=== PATIENT | female | born 1995 | race Caucasian/White ===

== ENCOUNTER 2018-08-04 14:10 | Emergency (ER) | payer MEDICAID, SELFPAY ==
[2018-08-04 14:13] VITALS: BP 102/66; PULSE 90; PULSE 94; RESP 17; TEMP 37.6; O2SAT 95; O2SAT 96; BMI 18.7
--- NOTE | 2018-08-04 15:25 | ED.VISSUMM ---
- ER Visit Summary Date of Service: 08/04/18 Chief Complaint: Fever, cough History of Present Illness: The patient is a 22 F presents to the emergency department fever and cough. Patient symptoms been going on for 2 days. There is been positive influenza exposure. She states that she is a cough productive sputum. She is also had chills and myalgias. She is feeling better today than she was yesterday. Her boyfriend is also sick with similar symptoms. She has no history of immunosuppression. She does smoke. Physical Examination: Vital signs reviewed General: Well-nourished, well-developed Head: Normocephalic, atraumatic Eyes: Pupils equal and reactive, extraocular muscles intact Neck, supple, no lymphadenopathy Heart: Regular rate and rhythm Respiratory: No distress, clear bilaterally Abdomen: Soft, nontender, nondistended, no peritoneal signs Back: Nontender Extremities: Nontender, no edema, no cords Skin: Normal color no rash Neuro: Alert and oriented, no focal or lateralizing deficits Test Results: [] Emergency Department Course and Treatment: Rapid flu was obtained in triage. It was positive. Patient is still within the window for Tamiflu. After discussion, she was agreeable with this treatment. I did obtain a chest x-ray. This is unremarkable. There is no evidence of infiltrates. She is not hypoxic or tachypneic. I do feel the patient is safe for outpatient therapy. She is comfortable with this plan of care. Treatment Plan: [] Disposition: Discharge Impression: 1. Influenza This note was generated with [employer] dictation software. It may contain incorrect words, spelling, and punctuation that were not noted in review of the chart prior to signing ED Disposition - Plan for ED Patient: Instructions: ED Flu Prescriptions: Oseltamivir Phosphate [Tamiflu] 75 mg PO BID #10 cap Referrals: Care Physician,No Primary [Primary Care Provider] -
--- NOTE | 2018-08-04 15:30 | RAD_ITS ---
STUDY: X-RAY CHEST REASON FOR EXAM: Female, 22 years old. Cough and fever. Weakness. TECHNIQUE: PA and lateral views of the chest. COMPARISON: None. FINDINGS: The lungs are clear and expanded. There is no demonstrated pleural abnormality. Normal size heart. Normal mediastinum and li. Normal visualized pulmonary arteries. Normal visualized aortic arch and descending thoracic aorta. Normal visualized thoracic spine. Normal visualized ribs, clavicles, and shoulders. There is no demonstrated abnormality of the visualized soft tissue structures of the upper abdomen. RAD/Chest PA and Lateral IMPRESSION: Normal x-ray examination of the chest. Electronically Signed: John Henderson, at 15:50 EST , Service support ,
[2018-08-04] MEDS: Oseltamivir Phosphate 75 MG Capsule PO (15:38)
== END 2018-08-04 15:51 | disposition home or self-care (01) ==
PROVIDERS: Emergency Provider Emergency Medicine
DX: J11.1 Influenza due to unidentified influenza virus with other respiratory manifestations (principal)
CPT/HCPCS: 71046; 87804; 99283

== ENCOUNTER → 2020-01-17 10:33 | Outpatient (CLI) | payer MEDICAID, SELFPAY ==
[2020-01-17 13:35] LABS: Absolute Lymphocyte Count 1.71 X10^3/uL (0.83-4.51); Absolute Neutrophil Count 10.7 X10^3/uL (2.0-7.7); Basophil# 0.07 X10^3/uL; Basophil% 0.5 % (0-1); Eosinophil# 0.18 X10^3/uL; Eosinophils% 1.3 % (0-5); Hematocrit 43.2 % (37-47); Hemoglobin 14.1 g/dL (12.0-15.0); Lymphocyte # 1.71 X10^3/ul (4.0); Lymphocyte % 12.6 % (19-41); Mean Corp Hgb Conc 32.6 g/dL (32-36); Mean Corpuscular Hgb 31.1 pg (27.0-32.0); Mean Corpuscular Volume 95.4 fL (81-99); Monocyte# 0.88 X10^3/uL; Monocyte% 6.5 % (0-10); NRBC Flagged by Analyzer 0 % (0-5); Neutrophil # 10.68 X10^3/uL (2.7-7.7); Neutrophil % 78.7 % (47-70); Platelet Count 331 K/mm3 (150-450); RBC Distribution Width CV 13.5 % (11.6-14.6); RBC Distribution Width SD 47.4 fl (35.1-43.9); Red Blood Count 4.53 M/mm3 (4.2-5.4); White Blood Count 13.6 K/mm3 (4.4-11.0)
[2020-01-17 13:36] LABS: Color, Urine Yellow (Yellow); Glucose, Dipstick Normal (Normal); Ketone-Dipstick 15 mg/dl (Negative); Leukocyte Esterase-Dipstick 500 /ul (Negative); Nitrite-Dipstick Negative (Negative); Occult Blood-Urine Negative /ul (Negative); Protein-Dipstick 15 mg/dl (Negative); Specific Gravity, Urine 1.025 (1.002-1.030); Urine Bilirubin Dipstick Negative (Negative); Urine Clarity Cloudy (Clear); Urine Urobilinogen Normal (Normal)
[2020-01-17 13:55] LABS: Amphetamine Urine VISTA NEGATIVE (<1000 ng/mL); Barbiturate Urine VISTA NEGATIVE (< 200 ng/mL); Benzodiazepine Urine VISTA NEGATIVE (< 200 ng/mL); Cocaine Urine VISTA NEGATIVE (< 300 ng/mL); Ecstacy Urine VISTA NEGATIVE (< 500 ng/mL); Methadone Urine VISTA NEGATIVE (< 300 ng/mL); PCP Urine VISTA NEGATIVE (< 25 ng/mL); THC Urine VISTA POSITIVE (< 50 ng/mL); Vista UDS pH Range 6
[2020-01-17 13:59] LABS: Free T3 1.7 pg/mL (2.18-3.98); T4 Free Direct 0.64 ng/dL (0.76-1.46); T4 Total, Thyroxin 4.7 ug/dL (4.8-13.9); Thyroid Stim Hormone (TSH) 8.45 uIU/mL (0.358-3.74)
[2020-01-17 14:31] LABS: HIV - WCH Non-Reactive (Nonreactive); Hepatitis B Surface Antigen Non-Reactive (Nonreactive); Hepatitis C Antibody Non-Reactive (Nonreactive); Rubella IgG 47.1 IU/mL
[2020-01-19 02:16] LABS: Prenatal RPR NONREACTIVE (NONREACTIVE)
[2020-01-19 03:06] LABS: Chlamydia By Nucleic Acid AMP Negative (Negative)
[2020-01-19 11:28] LABS: Gonococcus By Nucleic Acid AMP Negative (Negative)
== END ==
PROVIDERS: Visit Provider Obstetrics & Gynecology
DX: Z11.3 Encounter for screening for infections with a predominantly sexual mode of transmission (principal); Z34.81 Encounter for supervision of other normal pregnancy, first trimester
CPT/HCPCS: 36415; 80307; 81002; 84436; 84439; 84443; 84481; 85025; 86703; 86762; 86803; 87340; 87491; 87591

== ENCOUNTER → 2020-02-13 15:05 | Outpatient (CLI) | payer MEDICAID, SELFPAY ==
[2020-02-13 16:25] LABS: Free T3 2.2 pg/mL (2.18-3.98); T4 Free Direct 0.93 ng/dL (0.76-1.46); T4 Total, Thyroxin 12.2 ug/dL (4.8-13.9); Thyroid Stim Hormone (TSH) 1.21 uIU/mL (0.358-3.74)
== END ==
PROVIDERS: Visit Provider Obstetrics & Gynecology
DX: E03.8 Other specified hypothyroidism (principal)
CPT/HCPCS: 36415; 84436; 84439; 84443; 84481

== ENCOUNTER → 2020-05-14 16:28 | Outpatient (CLI) | payer MEDICAID, SELFPAY ==
[2020-05-14 17:50] LABS: Hematocrit 37.7 % (37-47); Hemoglobin 12.1 g/dL (12.0-15.0); Mean Corp Hgb Conc 32.1 g/dL (32-36); Mean Corpuscular Hgb 30.8 pg (27.0-32.0); Mean Corpuscular Volume 95.9 fL (81-99); Mean Platelet Vol. 10.2 fl (6.2-12.0); Platelet Count 319 K/mm3 (150-450); RBC Distribution Width CV 13.1 % (11.6-14.6); RBC Distribution Width SD 46.2 fl (35.1-43.9); Red Blood Count 3.93 M/mm3 (4.2-5.4); White Blood Count 11.2 K/mm3 (4.4-11.0)
[2020-05-14 18:25] LABS: Glucose Challenge Gest 1H 50g 150 mg/dL (70-140); T4 Free Direct 0.99 ng/dL (0.76-1.46); Thyroid Stim Hormone (TSH) 0.51 uIU/mL (0.358-3.74)
== END ==
PROVIDERS: Visit Provider Obstetrics & Gynecology
DX: Z34.82 Encounter for supervision of other normal pregnancy, second trimester (principal)
CPT/HCPCS: 36415; 82950; 84439; 84443; 85027

== ENCOUNTER → 2020-05-30 09:55 | Outpatient (CLI) | payer MEDICAID, SELFPAY ==
[2020-05-30 11:00] LABS: Glucose GTT-Gestation. Fasting 77 mg/dL (<105)
== END ==
PROVIDERS: Referring Provider Obstetrics & Gynecology; Visit Provider Obstetrics & Gynecology
DX: O24.912 Unspecified diabetes mellitus in pregnancy, second trimester (principal); Z3A.00 Weeks of gestation of pregnancy not specified
CPT/HCPCS: 36415; 82951; 82952

== ENCOUNTER → 2020-08-08 16:42 | Outpatient (CLI) | payer MEDICAID, SELFPAY | PROVIDERS: Visit Provider Obstetrics & Gynecology | DX: Z36.85 Encounter for antenatal screening for Streptococcus B (principal) | CPT/HCPCS: 87077; 87081; 87186 ==

== ENCOUNTER 2020-08-20 07:10 | Inpatient (IN) | payer MEDICAID, SELFPAY ==
[2020-08-20] VITALS (20 sets, daily range): BP systolic 98–125; BP diastolic 55–72; PULSE 76–94; TEMP 36.7–37; O2SAT 97–99; BMI 23.3
[2020-08-20] MEDS: Lactated Ringers 1,000 ML 50 ML IV (08:05)
[2020-08-20 08:31] LABS: Absolute Lymphocyte Count 2.91 X10^3/uL (0.83-4.51); Absolute Neutrophil Count 7.5 X10^3/uL (2.0-7.7); Basophil# 0.05 X10^3/uL; Basophil% 0.4 % (0-1); Eosinophil# 0.29 X10^3/uL; Eosinophils% 2.4 % (0-5); Hemoglobin 12.7 g/dL (12.0-15.0); Lymphocyte # 2.91 X10^3/ul (4.0); Lymphocyte % 24.5 % (19-41); Mean Corp Hgb Conc 33.4 g/dL (32-36); Mean Corpuscular Hgb 31.2 pg (27.0-32.0); Mean Corpuscular Volume 93.4 fL (81-99); Mean Platelet Vol. 9.8 fl (6.2-12.0); Monocyte# 1.05 X10^3/uL; Monocyte% 8.8 % (0-10); NRBC Flagged by Analyzer 0 % (0-5); Neutrophil # 7.49 X10^3/uL (2.7-7.7); Neutrophil % 63.1 % (47-70); Platelet Count 269 K/mm3 (150-450); RBC Distribution Width CV 13.8 % (11.6-14.6); RBC Distribution Width SD 46.6 fl (35.1-43.9); Red Blood Count 4.07 M/mm3 (4.2-5.4); White Blood Count 11.9 K/mm3 (4.4-11.0)
[2020-08-20] MEDS: miSOPROStol 25 MCG TABLET VAGINAL (08:40)
--- NOTE | 2020-08-20 09:24 | HP.PCM_ITS ---
History and Physical Date of Admission: 08/20/20 Chief complaint: Induction of labor for IUGR History present illness: 25-year-old at 38 weeks and 0 days with KATERYNA 09/04/2019 1 x 7-week ultrasound arrives for induction of labor for IUGR. Denies headache, visual changes, nausea, vomiting, chest pain, shortness of breath, right upper quadrant pain. Patient states good movement Obstetric history: G1: Current Past medical history: Hypothyroidism, anxiety depression Medications: vitamin, Synthroid, Zoloft Past surgical history: None Social history: 1 pack/day smoker, history of THC use not in , denies alcohol Allergies: No known drug allergies Family history: Denies history of DVT or PE Review of systems: Besides above pertinent positives a full review of systems performed and found to be negative Physical exam: Vital Signs Temp 08/20/20 07:23 98.6 F General: Normal-appearing no acute distress HEENT: Normocephalic atraumatic no cervical lymphadenopathy Cardiac/respiratory: Nonlabored breathing, no use of her accessory muscles Abdomen: Soft, nontender, gravid Extremities: No peripheral edema normal peripheral pulses Psych: Normal affect normal demeanor nonpressured speech Mom's Microbiology 08/20/20 08:45 Mucosa - Nose SARS-CoV-2 Antigen (Rapid) - Final Mom's Labs & Results 08/20/20 08/20/20 08:00 08:00 WBC 11.9 H RBC 4.07 L Hgb 12.7 Hct 38.0 MCV 93.4 MCH 31.2 MCHC 33.4 RDW Std Deviation 46.6 H RDW Coeff of Jes 13.8 Plt Count 269 MPV 9.8 Immature Gran % (Auto) 0.800 Neut % (Auto) 63.1 Lymph % (Auto) 24.5 [place] % (Auto) 8.8 Eos % (Auto) 2.4 Baso % (Auto) 0.4 Absolute Neuts (auto) 7.5 Absolute Lymphs (auto) 2.91 Nucleated RBC % 0 Blood Type Pending Antibody Screen Pending Assessment plan: Is a 25-year-old G1, P0 at 38 weeks 0 days for induction of labor with IUGR -Admit Labor and delivery -Cytotec induction -GBS positive: To start penicillin -IUGR EFW 2481 g 15th percentile AC 4th percentile -Routine orders -Anesthesia to see
[2020-08-20] MEDS: Oxytocin 30 units/NS 500 ml 30 UNITS/500 ML IV.SOLN IV (13:21)
[2020-08-20] MEDS: Lactated Ringers 1,000 ML 150 ML IV (17:04)
--- NOTE | 2020-08-20 18:31 | PCM.PN.OB ---
Subjective: Resting comfortably in bed. Pain well controlled - Physical Exam Vitals/I&O's: Vital Signs Temp Pulse BP Pulse Ox 98.1 F 88 105/70 99 08/20/20 15:54 08/20/20 18:21 08/20/20 18:21 08/20/20 14:05 Weight: 123 lb 6 oz Body Mass Index (BMI) 23.3 Intake and Output for Last 24 Hours 08/18/20 08/19/20 08/20/20 23:59 23:59 23:59 Intake Total 898.41 / 898.41 Output Total 200 / 200 Balance 698.41 / 698.41 General: Alert, Oriented x3, Cooperative, No apparent distress HEENT: Atraumatic, Normocephalic Oral: Moist Mucosa Neck: Supple Abdomen: Soft, Non Tender Extremities: No clubbing, No cyanosis, No edema Neurological: Neuro grossly intact Psych/Mental Status: Normal Affect, Appropriate, Alert and oriented to time, place, person, mood and affect Microbiology Past 72 Hours 08/20/20 08:45 Mucosa - Nose SARS-CoV-2 Antigen (Rapid) - Final Laboratory Results 08/20/20 08:00: WBC 11.9 H, RBC 4.07 L, Hgb 12.7, Hct 38.0, MCV 93.4, MCH 31.2, MCHC 33.4, RDW Std Deviation 46.6 H, RDW Coeff of Jes 13.8, Plt Count 269, MPV 9.8, Immature Gran % (Auto) 0.800, Neut % (Auto) 63.1, Lymph % (Auto) 24.5, [place] % (Auto) 8.8, Eos % (Auto) 2.4, Baso % (Auto) 0.4, Absolute Neuts (auto) 7.5, Absolute Lymphs (auto) 2.91, Nucleated RBC % 0 08/20/20 08:00: Blood Type O POSITIVE, Antibody Screen NEGATIVE Current Medications Acetaminophen (Acetaminophen 500 Mg Tablet) 500 - 1,000 mg PO Q6H PRN PRN PRN Reason: Pain Score 1-3 Al Hydroxide/Mg Hydroxide (Mag Hydrox/Al Hydrox/Simeth 30 Ml Udc) 15 - 30 ml PO Q4H PRN PRN PRN Reason: INDIGESTION Citric Acid/Sodium Citrate (Sodium Citrate/Citric Acid 30 Ml Udc) 30 ml PO X1 PRN PRN Reason: Section Ephedrine Sulfate (Ephedrine Sulfate 50 Mg/Ml Ampul) 10 mg IV Q10M PRN PRN Reason: hypotension Ephedrine Sulfate (Ephedrine Sulfate 50 Mg/Ml Ampul) 10 mg IM Q30M PRN PRN Reason: hypotension Fentanyl Citrate (Fentanyl 100 Mcg/2 Ml Ampul) 25 - 50 mcg IV Q2H PRN PRN PRN Reason: Pain Score 4-10 Fentanyl/Bupivacaine/Sodium Chlor (Fentanyl-Bupivacaine (Epidural) 100 Ml Bag) 0 ml EPIDURAL UD KIRAN; Protocol Lactated Ringer's () 500 mls @ 999 mls/hr IV .Q31M PRN PRN Reason: Epidural Lactated Ringer's () 500 mls @ 999 mls/hr IV .Q31M PRN PRN Reason: Corrective Measures Lactated Ringer's () 1,000 mls @ 50 mls/hr IV .Q20H [facility] Last Admin: 08/20/20 17:04 Dose: 150 mls/hr Documented by: Oxytocin/Sodium Chloride () 30 units in 500 mls @ 2 mls/hr IV .Q250H [facility] Last Infusion: 08/20/20 17:39 Dose: 12 mls/hr Documented by: Penicillin G Potassium/Dextrose (Penicillin G Potassium) 3 mu in 50 mls @ 100 mls/hr IV Q4H [facility] Last Infusion: 08/20/20 14:49 Dose: Infused Documented by: Nalbuphine HCl (Nalbuphine 10 Mg/Ml Ampul) 5 mg IV Q3H PRN PRN PRN Reason: ITCHING Naloxone HCl (Naloxone 0.4 Mg/Ml Syringe) 0.02 mg IV Q1M PRN PRN Reason: RR <10 and pt unresponsive Ondansetron HCl (Ondansetron 4 Mg/2 Ml Vial) 4 mg IV Q4H PRN PRN PRN Reason: NAUSEA Prochlorperazine Edisylate (Prochlorperazine 10 Mg/2 Ml Vial) 10 mg IV Q6H PRN PRN PRN Reason: NAUSEA Sodium Chloride (0.9% Saline Lock 10 Ml Syringe) 10 - 40 ml IV X1 PRN PRN Reason: SALINE FLUSH Medical Necessity - Tobacco Use Smoking Status: Never smoker Assessment/Plan Patient seen and examined. Cervical exam /. heart tones category 1 tracing. Was called about prolonged decelerations 2 to 3 minutes at around 1400, tracing within normal limits for 30 minutes Pitocin restarted. Now with category 1 tracing discussed AROM with the patient, for now will keep intact and continue titrate Pitocin with category 1 tracing.
--- NOTE | 2020-08-20 19:28 | NURSING ---
Pitocin rate was at 14 mL/hour on pump upon arrival of this RN's shift. Increased to 16 mL/hour at 1925. See Connect labor documentation.
[2020-08-20] MEDS: fentaNYL 100 MCG/2 ML Ampul IV (23:03)
[2020-08-20] MEDS: 0.9% Saline Lock 10 ML Syringe IV (23:04)
[2020-08-20] MEDS: Lactated Ringers 500 ML 999 ML IV (23:36)
[2020-08-21] VITALS (55 sets, daily range): BP systolic 93–159; BP diastolic 50–102; PULSE 68–112; RESP 16–18; TEMP 36.4–37.3; O2SAT 86–100
[2020-08-21 00:45] LABS: ROM Internal Control Test YES-OK TO RESULT pt. (Internal QC)
[2020-08-21 00:46] LABS: ROM Patient Test POSITIVE (Negative)
[2020-08-21] MEDS: fentaNYL-bupivacaine (epidural) 100 ML BAG EPIDURAL (01:16)
[2020-08-21] MEDS: Lactated Ringers 500 ML 999 ML IV (01:42)
[2020-08-21] MEDS: Oxytocin 30 units/NS 500 ml 30 UNITS/500 ML IV.SOLN 334 UNITS IV (02:30)
--- NOTE | 2020-08-21 03:18 | PCM.OPRPT ---
Vaginal Delivery Date of Procedure: 08/21/20 Pre-Operative Diagnosis: Term, IUGR Post-Operative Diagnosis: Term, IUGR Type of Anesthesia: Epidural Description of Procedure: Normal spontaneous vaginal delivery of a viable female infant, vertex FRANK. Head and shoulders delivered with ease. Cord cut and clamped. Baby handed off to nursing. Placenta delivered via cord traction and fundal massage. Bilateral labial lacerations noted and repaired in typical fashion. EBL 300 cc Apgars 9/9
[2020-08-21] MEDS: 0.9% Saline Lock 10 ML Syringe IV ×2 (04:07→05:08)
[2020-08-21] MEDS: Ondansetron 4 MG/2 ML Vial IV (04:07)
[2020-08-21] MEDS: Ibuprofen 600 MG Tablet PO (09:43)
--- NOTE | 2020-08-21 10:50 | NURSING ---
Bilateral labial lacerations noted - approximated - pt states no pain from it.
--- NOTE | 2020-08-21 17:42 | NURSING ---
Bilateral labial lacerations unchanged from previous assessment.
[2020-08-21] MEDS: Sertraline 50 MG Tablet PO (21:38)
--- NOTE | 2020-08-21 23:46 | NURSING ---
bilateral labial lacerations, no repair needed
[2020-08-22 04:25] VITALS: BP 93/48; PULSE 75; RESP 16; TEMP 37.1
[2020-08-22] MEDS: Levothyroxine 75 MCG Tablet PO (05:38)
--- NOTE | 2020-08-22 07:28 | PCM.PN.OB ---
Subjective: PPD1 feeling well. Lochia minimal. . - Physical Exam Vitals/I&O's: Vital Signs Temp Pulse Resp BP Pulse Ox 98.8 F 75 16 93/48 L 96 08/22/20 04:25 08/22/20 04:25 08/22/20 04:25 08/22/20 04:25 08/21/20 23:25 Oxygen Delivery Method Room Air Weight: 55.962 kg Body Mass Index (BMI) 23.3 Intake and Output for Last 24 Hours 08/20/20 08/21/20 08/22/20 23:59 23:59 23:59 Intake Total 2477.14 / 2477.14 2050.54 / 2050.54 Output Total 275 / 275 1600 / 1600 Balance 2202.14 / 2202.14 450.54 / 450.54 General: Alert, Oriented x3, No apparent distress HEENT: Atraumatic, Normocephalic Neck: Supple Lungs: Normal air movement Cardiovascular: Regular rate Abdomen: Soft - uterus 2 cm below umbilicus Extremities: No edema Neurological: Cranial nerves II-XII grossly intact Psych/Mental Status: Normal Affect, Appropriate Microbiology Past 72 Hours 08/20/20 08:45 Mucosa - Nose SARS-CoV-2 Antigen (Rapid) - Final Current Medications Acetaminophen (Acetaminophen 500 Mg Tablet) 1,000 mg PO Q8H PRN PRN PRN Reason: Pain Score 1-3 Bisacodyl (Bisacodyl 10 Mg Suppository) 10 mg RC UD PRN PRN Reason: If no BM Dibucaine (Dibucaine 30 Gm Tube) 1 applic TOPICAL TID PRN PRN; Protocol PRN Reason: Discomfort Hydrocortisone (Hydrocortisone 2.5% Crm) 1 applic TOPICAL TID PRN PRN; Protocol PRN Reason: Discomfort Ibuprofen (Ibuprofen 600 Mg Tablet) 600 mg PO Q6H PRN PRN PRN Reason: Pain Score 1-3 Last Admin: 08/21/20 09:43 Dose: 600 mg Documented by: Levothyroxine Sodium (Levothyroxine 75 Mcg Tablet) 75 mcg PO DAILY@0600 KIRAN Last Admin: 08/22/20 05:38 Dose: 75 mcg Documented by: Ondansetron HCl (Ondansetron 4 Mg/2 Ml Vial) 4 mg IV Q4H PRN PRN PRN Reason: Nausea Last Admin: 08/21/20 04:07 Dose: 4 mg Documented by: Senna/Docusate Sodium (Senna/Docusate Sodium 1 Tablet) 1 - 2 tablet PO DAILY PRN PRN PRN Reason: Constipation Sertraline HCl (Sertraline 50 Mg Tablet) 50 mg PO DAILY@2200 KIRAN Last Admin: 08/21/20 21:38 Dose: 50 mg Documented by: Simethicone (Simethicone 80 Mg Tablet) 80 mg PO PCHS PRN PRN Reason: Indigestion/Stomach pain Sodium Chloride (0.9% Saline Lock 10 Ml Syringe) 5 - 15 ml IV UD PRN PRN Reason: SALINE FLUSH Last Admin: 08/21/20 05:08 Dose: 10 ml Documented by: Medical Necessity - Tobacco Use Smoking Status: Never smoker Assessment/Plan PPD#1 s/p . . Doing well. Home today.
--- NOTE | 2020-08-22 07:29 | DCINST_ITS ---
Discharge Diet: No Restrictions Discharge Activity: Return to Normal Activity, May not drive while taking narcotic pain medications., May Shower May resume sexual activity in: 4-6 weeks Weight Bearing Status: Weight bearing as tolerated Call your doctor if you observe: Inability to urinate, Inability to have a bowel movement, Using more than one pad per hour, Shortness of breath, Dizziness, Calf discomfort Additional Instructions: If you experience any of the following, contact your healthcare provider. * Bleeding that soaks a pad every hour for 2 hours * Fever 100.4 or higher * Unrelieved incision or abdominal pain * Swelling, redness, discharge or bleeding from your incision or episiotomy site * Your incision begins to separate * Problems urinating (including inability to urinate or burning while urinat ing). * Visual changes * Severe headache * Flu-like symptoms * Pain or redness in one of both of your breasts * Pain, warmth, tenderness or swelling in your legs, especially the calf area * Frequent nausea and vomiting * Symptoms of depression or anxiety If you experience any of the following, call 911 or go to the nearest Emergency Room. * Chest pain * Problems breathing * Seizure activity * Partial or complete paralysis of a body part, slurred speech, weakness or drooping of the face, or a sudden inability to walk or hold your balance Allergies/Adverse Reactions: Allergies No Known Allergies Allergy (Verified 08/04/18 14:13) Medications to take at Discharge Levothyroxine [Synthroid] 75 mcg PO DAILY 10/06/16 Sertraline HCl 50 mg PO DAILY 08/04/18 Oseltamivir Phosphate [Tamiflu] 75 mg PO BID 08/20/20 Please Follow Up With: Ja Graham MD When: 6 weeks Primary Care Physician: Care Physician,No Primary [Primary Care Provider] - Test Results: Test results from this visit will be discussed in further detail at your follow- up appointment, if applicable.
[2020-08-22 07:58] VITALS: BP 97/57; PULSE 66; RESP 16; TEMP 36.4
[2020-08-22 10:24] VITALS: BP 114/67; PULSE 89; RESP 16; TEMP 36.6; O2SAT 95
[2020-08-22 13:06] VITALS: BP 97/65; PULSE 74; RESP 16; TEMP 36.4
== END 2020-08-22 13:30 | disposition home or self-care (01) | DRG 560 ==
PROVIDERS: Admitting Provider Obstetrics & Gynecology; Referring Provider Obstetrics & Gynecology; Visit Provider Obstetrics & Gynecology
DX: O36.5930 Maternal care for other known or suspected poor fetal growth, third trimester, not applicable or unspecified (principal); O76 Abnormality in fetal heart rate and rhythm complicating labor and delivery; O70.0 First degree perineal laceration during delivery; O98.82 Other maternal infectious and parasitic diseases complicating childbirth; B95.1 Streptococcus, group B, as the cause of diseases classified elsewhere; O99.824 Streptococcus B carrier state complicating childbirth; F17.210 Nicotine dependence, cigarettes, uncomplicated; O99.334 Smoking (tobacco) complicating childbirth; O99.284 Endocrine, nutritional and metabolic diseases complicating childbirth; E03.9 Hypothyroidism, unspecified; Z3A.38 38 weeks gestation of pregnancy; Z37.0 Single live birth
CPT/HCPCS: 59025; 59050; 84112; 85025; 86850; 86900; 86901; 87426; 99218; J7120; A4216; G0378; J2405

== ENCOUNTER 2022-09-29 05:23 | Emergency (ER) | payer MEDICAID, SELFPAY ==
[2022-09-29 05:26] VITALS: BP 129/76; PULSE 102; RESP 18; TEMP 36.7; O2SAT 93; BMI 20.9
--- NOTE | 2022-09-29 06:27 | EDS_ITS ---
HPI History of Present Illness Chief Complaint: Anxiety Informant: patient Onset/Context/Timing Onset: Today and Hours Context: Gradual Onset Timing: Continuous Current Severity: Mild Maximum Severity: Mild Narrative Narrative: 27-year-old female with past medical history of hypothyroidism. Recently had anxiety. States she lost her dog several months ago. She was drinking about that today. Denies any recent illness or hospitalization. Prior similar symptoms: Yes Recent Illness/Hospitalization: No PFSH PFSH Medical History Anxiety Hypothyroidism Home Medications levothyroxine 75 mcg tablet 50 mcg PO DAILY Check with primary doctor 10/06/16 [History Last Taken 08/20/20] sertraline 50 mg tablet 50 mg PO DAILY Check with primary doctor 08/04/18 [History Last Taken Unknown] Allergy/AdvReac Type Severity Reaction Status Date / Time No Known Allergies Allergy Verified 09/29/22 05:24 Social History Smoking Status: Current every day smoker tobacco type: cigarettes ROS ROS ED ROS Narrative Anxiety. Review of Systems ROS Unobtainable: Denies due to encephalopathy Constitutional Constitutional ED: Denies chills or fever(s) Eyes Eyes: Denies blurry vision ENT ENT ED: Denies ear pain Cardiovascular Cardiovascular: Denies chest pain Respiratory/Chest Respiratory/Chest: Denies cough Gastrointestinal Gastrointestinal: Denies abdominal pain Genitourinary Genitourinary ED: Denies dysuria or hematuria Musculoskeletal Musculoskeletal: Denies arthralgias Integumentary Denies abscess Neurologic Neurologic: Denies headache(s) Psychiatric Psychiatric: Reports anxiety; Denies suicidal ideation or suicidal thoughts Endocrine Endocrinology: Denies cold intolerance Hematologic/Lymphatic Hematologic/Lymphatic: Reports none Allergic/Immunologic Allergic/Immunologic ED: Denies mouth swelling or tongue swelling EXAM Physical Exam Narrative Exam Narrative: 27-year-old female vital signs are stable afebrile. No acute distress. Mom and daughter present in room. H EENT exam unremarkable. Neck nontender. Thyroid nodules on the right prior history of same. Lungs clear. Heart regular rhythm rate about 90 no murmur. Chest wall nontender. Abdomen soft nontender. Moving all 4 extremities. Calves are nontender without edema. Neurologically she is awake and alert with no focal motor deficits. Benign exam. Const Vital Signs: 09/29/22 05:26 09/29/22 05:29 Temperature 98.0 F Temperature Source Temporal Pulse Rate 102 H Respiratory Rate 18 Respiratory Effort Normal Respiratory Pattern Normal Blood Pressure 129/76 H Blood Pressure Mean 93 Pulse Ox 93 Oxygen Delivery Method Room Air Positive well nourished and well developed; Negative for obese, cachectic, contractures or unkempt General Appearance ED: well developed and NAD; Negative for unkempt, cachectic, contractures, cyanotic or diaphoretic Nutritional Appearance: Negative for cachectic or obese HEENT Reports moist mucous membranes; Denies dry mucous membranes Negative for trauma or tenderness Mouth ED: No dry mucous membranes Mouth: No dry mucous membranes Eyes PERRL and EOMs intact bilaterally General Eye ED: Negative for pale conjunctiva, scleral icterus or other Neck no lymphadenopathy, supple and no JVD General: Negative for tenderness Lymph Lymphatic: Negative for other Chest Wall inspection of chest normal and palpation of chest normal Chest: Negative for other Resp normal respiratory effort and clear to auscultation bilaterally Effort and Inspection: Negative for retractions Auscultation: Negative for rales, rhonchi or wheezes Cardio regular rate, regular rhythm, S1 normal heart sound, S2 normal heart sound and no murmurs Palpation: Negative for palpable S3 Rate: Negative for bradycardia or tachycardic Rhythm: Negative for abnormal rhythm GI normal to inspection, nondistended, normoactive bowel sounds, non-tender, non- distended and no masses Inspection: Negative for abdominal distention Auscultation: normoactive bowel sounds Palpation: soft; Negative for tender or guarding Bladder / Kidney Exam: No other Back/Spine no CVA tenderness General Back: Negative for CVA tenderness Cervical Spine: Negative for cervical spine tenderness Thoracic Spine / Upper Back: Negative for thoracic spinal tenderness Lumbar Spine / Lower Back: Negative for lumbar spinal tenderness Extremity normal to inspection General Extremety ED: Negative for edema or tenderness General Extremity: Negative for edema Neuro oriented x3 and CN's II-XII intact bilaterally Sensorium / Orientation: alert; Negative for orientation impaired, lethargic or stuporous Motor Exam: strength 5/5 throughout Psych mental status grossly normal Appearance: Negative for unkempt Attitude: No agitated Mood & Affect: anxious; Negative for depressed or tearful Skin no rashes or lesions noted, no wounds and skin turgor normal General Skin Exam: elasticity normal Lesions: No lesion noted Rashes: No rashes noted Trauma: Negative for abrasion Wounds: Negative for wounds noted MDM MDM MDM Narrative Medical decision making narrative: 7-year-old female with anxiety. Exam benign. She was given 1 dose of p.o. Ativan. Mom is with her mom will drive her home. She will follow-up with her primary care physician. History & Record Review Discussion w/independent historian: Patient Additional record(s) reviewed:: Prior inpatient record, Prior outpatient record, Prior ED visit and Prior labs Discharge Plan Triage Chief Complaint: Anxiety ED Provider: Cayden Zhang Dx/Rx/DC Orders Clinical Impression: Anxiety, History of hypothyroidism Instructions: ED Anxiety Reaction Prescriptions: No Action levothyroxine 75 MCG tablet 50 mcg PO DAILY sertraline 50 MG tablet 50 mg PO DAILY Rx Instructions: not taking Primary Care Provider: Mekhi Fajardo Referrals: Mekhi Fajardo MD [Primary Care Provider] - As soon as possible Activity Restrictions/Additional Instructions: Follow-up with your primary care physician. Restart and make sure you are taking your thyroid medications as prescribed. Disposition Disposition: Home, Self Care
[2022-09-29] MEDS: LORazepam 1 MG Tablet PO (06:33)
== END 2022-09-29 06:36 | disposition home or self-care (01) ==
PROVIDERS: Emergency Provider Emergency Medicine; PCP Family Medicine; Visit Provider Emergency Medicine
DX: F41.9 Anxiety disorder, unspecified (principal); F17.210 Nicotine dependence, cigarettes, uncomplicated; E03.9 Hypothyroidism, unspecified
CPT/HCPCS: 99283

== ENCOUNTER → 2022-10-28 | Outpatient (CLI) | payer MEDICAID, SELFPAY ==
--- NOTE | 2022-10-28 | FLU_PTH ---
PATIENT: BETTY HE LOC: [facility] U#:[id number] AGE/SX: 27/F ROOM: RE10/28/[address]: Dr. Annia Barney MD : 1995 BED: DIS: 10/28/2022 SPEC #: [id number] RECD: 10/28/22 09:32 STATUS: ALAN JENNIFER #: [id number] FABIO: 10/28/22 00:[address]: Annia Barney DEPT: CYTOLOGY RECD BY: John Lindsay ENTERED: 10/29/22 09:32 SP TYPE: Fluid OTHR DR: Dr. Mekhi Fajardo MD Tissues: A - Thyroid gland, NOS B - Thyroid gland, NOS Procedures: Special Stain Group II Surgery Specimen Level IV Cytospin Fluid HEADER OPERATION: Fine needle aspiration left thyroid PRE-OP DIAGNOSIS: Abnormal thyroid ultrasound TISSUE SUBMITTED: A ? FNA left mid lower thyroid fluid, B - FNA left mid lower thyroid x6 slides DIAGNOSIS CYTOLOGY A. Left mid thyroid fluid, fine needle aspiration (cytospin and cell block): Atypical follicular cells of undetermined significance ([place] Category III). Adequate for evaluation. See comment. B. Left mid thyroid fluid, fine needle aspiration (smears): Atypical follicular cells of undetermined significance in the background of chronic lymphocytic thyroiditis ([place] Category III). Adequate for evaluation. See comment. SJ:rg 10/30/2022 COMMENT Correlation with clinical, radiologic findings and appropriate follow up are necessary. The [place] System for thyroid diagnostic categorization was used in the evaluation of this case. Multi-gene next-generation sequencing panel ([facility]) is recommended for this lesion. This recommendation was communicated to the physician's office. Case has been reviewed in consultation with Dr. Elias who concurs with the above diagnosis. IDC:AM CYTOLOGY STUDY Slides are reviewed. CYTOLOGY GROSS A - Received is 35 ml of light pink hazy fluid labeled with the patient's name and and designated per the requisition as left mid lower thyroid. Submitted for cytology preparation including cell block. B - Received are six smears labeled with the patient's name and designated per the requisition as left mid lower thyroid. Submitted for staining. / shane 10/29/2022 TC:5 CPT: 36049 x2, 81458
== END | disposition home or self-care (01) ==
LOC: LABSPEC 16:19
PROVIDERS: PCP Family Medicine; Referring Provider Surgery; Visit Provider Surgery
DX: R93.89 Abnormal findings on diagnostic imaging of other specified body structures (principal)
CPT/HCPCS: 88108; 88305; 88313